=== PATIENT | male | born 1985 | race Two or more races ===

== ENCOUNTER 2023-06-18 09:03 | Emergency (ER) | payer OTHER ==
[~2023-06-18] VITALS: Ht 175.3 cm; Wt 104.5 kg
[2023-06-18 09:34] LABS: Chloride 109 mmol/L (98-107); Potassium 4.2 mmol/L (3.5-5.1); Sodium 138 mmol/L (136-145)
[2023-06-18 09:35] LABS: Anion Gap 5 (5-15); Carbon Dioxide 24 mmol/L (20-30)
[2023-06-18 09:36] LABS: Calcium 9.5 mg/dL (8.5-10.1)
[2023-06-18 09:41] LABS: Glucose 96 mg/dL (74-106)
[2023-06-18 09:45] VITALS: PULSE 91; RESP 24; TEMP 98.3; O2SAT 95
[2023-06-18 10:19] LABS: Basophils # (auto) 0 10 ^3/uL (0-0.2); Basophils % (auto) 0.9 % (0.0-2.0); Eosinophils # (auto) 0.3 10 ^3/uL (0-0.8); Eosinophils % (auto) 7.7 % (0.0-7.0); Hematocrit 43.9 % (41.0-53.0); Hemoglobin 14.8 g/dL (13.5-17.5); Lymphocytes # (auto) 1.7 10 ^3/uL (0.4-5.4); Lymphocytes % (auto) 45.6 % (10.0-50.0); Mean Corpuscular Hemoglobin 28.1 pg (28.0-32.0); Mean Corpuscular Hgb Conc. 33.7 g/dL (32.0-36.0); Mean Corpuscular Volume 83.6 fL (80.0-100.0); Monocytes # (auto) 0.4 10 ^3/uL (0-1.3); Monocytes % (auto) 11.4 % (0.0-12.0); Neutrophils # (auto) 1.3 10 ^3/uL (1.6-8.6); Neutrophils % (auto) 34.4 % (37.0-80.0); Nucleated Red Blood Cells % 0.2 %; Red Blood Cells 5.25 10^6/uL (4.5-5.90); Red Cell Distribution Width 13.6 % (11.8-14.3); White Blood Cell 3.7 10^3/uL (4.4-10.8)
[2023-06-18 10:21] LABS: BUN/Creatinine Ratio 8.5 (10.0-20.0); Blood Urea Nitrogen 8 mg/dL (9-23)
[2023-06-18] MEDS ORDERED: cloNIDine HCL 0.1 MG TAB PO ONE (11:30)
[2023-06-18 13:08] VITALS: BP 143/99
[2023-06-18 13:23] VITALS: PULSE 86; RESP 18; O2SAT 98
== END 2023-06-18 13:26 | disposition home or self-care (01) ==
LOC: ER 09:03 → EDBD 09:03 → ER 13:21
DX: I16.0 Hypertensive urgency (principal); F15.10 Other stimulant abuse, uncomplicated; R07.89 Other chest pain
CPT/HCPCS: 36415; 71045; 80048; 84484; 85025; 93005

== ENCOUNTER 2023-07-04 16:36 | Emergency (ER) | payer OTHER ==
[~2023-07-04] VITALS: Ht 172.7 cm; Wt 86.3 kg
[2023-07-04 17:03] LABS: Basophils # (auto) 0 10 ^3/uL (0-0.2); Basophils % (auto) 0.4 % (0.0-2.0); Eosinophils # (auto) 0.2 10 ^3/uL (0-0.8); Eosinophils % (auto) 1.9 % (0.0-7.0); Hematocrit 46.8 % (41.0-53.0); Hemoglobin 15.8 g/dL (13.5-17.5); Lymphocytes # (auto) 1.5 10 ^3/uL (0.4-5.4); Lymphocytes % (auto) 18.1 % (10.0-50.0); Mean Corpuscular Hemoglobin 28.1 pg (28.0-32.0); Mean Corpuscular Hgb Conc. 33.7 g/dL (32.0-36.0); Mean Corpuscular Volume 83.5 fL (80.0-100.0); Monocytes # (auto) 0.7 10 ^3/uL (0-1.3); Monocytes % (auto) 8.4 % (0.0-12.0); Neutrophils # (auto) 5.7 10 ^3/uL (1.6-8.6); Neutrophils % (auto) 71.2 % (37.0-80.0); Nucleated Red Blood Cells % 0.3 %; Red Blood Cells 5.61 10^6/uL (4.5-5.90); White Blood Cell 8.1 10^3/uL (4.4-10.8)
[2023-07-04 17:23] LABS: Alanine Aminotransferase 50 U/L (7-40); Albumin 4.4 g/dL (3.2-4.8); Alkaline Phosphatase 76 U/L (46-116); Anion Gap 7 (5-15); Aspartate Aminotransferase 26 U/L (13-40); BUN/Creatinine Ratio 13.3 (10.0-20.0); Bilirubin, Total 0.3 mg/dL (0.2-1.0); Blood Urea Nitrogen 13 mg/dL (9-23); Calcium 9.3 mg/dL (8.7-10.4); Carbon Dioxide 21 mmol/L (20-30); Chloride 109 mmol/L (98-107); Glucose 97 mg/dL (74-106); Potassium 4.2 mmol/L (3.5-5.1); Sodium 137 mmol/L (136-145); Total Protein 7.3 g/dL (5.7-8.2)
[2023-07-04 18:35] VITALS: BP 199/126; PULSE 111; RESP 20; O2SAT 95
[2023-07-04] MEDS: cloNIDine HCL 0.1 MG TAB PO ONE (18:47)
== END 2023-07-04 19:04 | disposition home or self-care (01) ==
LOC: ER 16:36 → EDBD 16:36 → ER 19:04
DX: R07.89 Other chest pain (principal); F15.10 Other stimulant abuse, uncomplicated; F12.10 Cannabis abuse, uncomplicated
CPT/HCPCS: 36415; 71045; 80053; 83735; 83880; 84484; 85025; 93005